=== PATIENT | male | born 1980 | race Caucasian/White ===

== ENCOUNTER 2022-11-28 09:08 | Emergency (ER) | payer OTHER ==
[2022-11-28] MEDS ORDERED: traMADol HCl 50 MG TAB ONE (10:12)
== END 2022-11-28 10:17 | disposition home or self-care (01) ==
LOC: CSHERS 09:08
DX: S40.012A Contusion of left shoulder, initial encounter (principal); W03.XXXA Other fall on same level due to collision with another person, initial encounter
CPT/HCPCS: 71045

== ENCOUNTER 2022-11-29 21:37 | Emergency (ER) | payer OTHER ==
[2022-11-29] MEDS ORDERED: Ketorolac Tromethamine 30 MG/ML VIAL ONE (22:29)
== END 2022-11-29 23:29 | disposition home or self-care (01) ==
LOC: CSHERS 21:37
DX: S42.202A Unspecified fracture of upper end of left humerus, initial encounter for closed fracture (principal); W01.0XXA Fall on same level from slipping, tripping and stumbling without subsequent striking against object, initial encounter; Y93.02 Activity, running; Y92.481 Parking lot as the place of occurrence of the external cause
CPT/HCPCS: 96372; J1885